=== PATIENT | male | born 1950 | race Caucasian/White ===

== ENCOUNTER 2023-02-20 18:24 | Emergency (ER) | payer MEDICARE, BC ==
[2023-02-20] MEDS ORDERED: Bacitracin Oint 1 GM U/D Packet TOP ONE (18:32)
[2023-02-20] MEDS ORDERED: Lidocaine 1% with EPINEPHrine 1:100,000 50 ML MDV SUBCUT STA (18:32)
== END 2023-02-20 20:32 | disposition home or self-care (01) ==
LOC: JP.ED 18:24
DX: S01.81XA Laceration without foreign body of other part of head, initial encounter (principal); S09.90XA Unspecified injury of head, initial encounter; Z79.899 Other long term (current) drug therapy; W01.0XXA Fall on same level from slipping, tripping and stumbling without subsequent striking against object, initial encounter
CPT/HCPCS: 12002; 70450; 99283